=== PATIENT | male | born 1980 | race Caucasian/White ===

== ENCOUNTER → 2020-02-01 | Day surgery (SDC) | payer OTHER ==
[2020-01-28 14:05] VITALS: BMI 25.4
[~2020-02-01] MED LIST: BUPIVACAINE (PF) 0.5% 30 ML VIAL INTRAARTIC ONE; DEXAMETHASONE SOD PHOSPHATE 10 MG/ML 1 ML VIAL IV ONE; HYDROmorphone (PF) 1 MG/ML ONE; HYDROmorphone 0.5 MG/0.5 ML SYRINGE IVP PRN; KETOROLAC 15 MG/ML 1 ML VIAL ONE; LACTATED RINGERS 1,000 ML IV ONE; LACTATED RINGERS 1,000 ML IV SCH; LIDOCAINE 1% (10MG/ML) FOR IV START INTRADERMA PRN; LIDOCAINE 1% INJ 10MG/ML (20 ML MDV) ONE; MIDAZOLAM 2 MG/2 ML VIAL IV PRN; MIDAZOLAM 2 MG/2 ML VIAL ONE; ONDANSETRON 4 MG/2 ML VIAL IVP ONE; ONDANSETRON ODT 4 MG TAB PO ONE; PROPOFOL 10 MG/ML 20 ML VIAL IV ONE; Pre Op ABX Message 1 EACH MISC MISCELLANE ONE; fentaNYL (PF) 50 MCG/ML 2 ML AMP IV PRN; fentaNYL (PF) 50 MCG/ML 2 ML AMP ONE
[2020-02-01 15:23] VITALS: TEMP 97.4
--- NOTE | 2020-02-01 15:31 | P.OP ---
Date of Procedure: 02/01/20 Preoperative Diagnosis: torn medial meniscus left knee Postoperative Diagnosis: 1. torn medial meniscus left knee 2. Synovitis Procedure(s) Performed: 1. arthroscopy of the left knee with partial medial meniscectomy ( 35% of the meniscus excised) 2. Partial synovectomy of the medial femoral, lateral femoral, and patellofemoral compartments Anesthesia: RUFINAA Surgeon: Dave Duggan Estimated Blood Loss (ml): 5 Pathology: none sent Condition: stable Disposition: PACU Indications for Procedure: this is a 40-year-old gentleman that presented my office with pain in his left knee. An MRI demonstrated torn medial meniscus and after discussing the surgical and nonsurgical treatment options with her at length he wishes to proceed with arthroscopic debridement of his knee informed consent was obtained. Operative Findings: operative findings are consistent with a torn posterior horn medial meniscus of the left knee. Description of Procedure: Patient was seen and evaluated in the preoperative area, the operative site was marked with a skin marker. The patient was then brought to the operating room and given 2 g of Ancef intravenously. A general anesthetic was administered by the anesthesia department. Tourniquet was placed on the left upper thigh and the left lower extremity was then prepped and draped in usual sterile fashion. A universal timeout was then performed confirming the patient's name, surgical site, ALLERGIES, and consent. The limb was then exsanguinated and tourniquet insufflated to 250 mmHg. Standard inferior medial and inferior lateral portals were established in the knee. The trochar was inserted in the inferolateral portal. Examination began at the patellofemoral joint. There was no evidence of chondral malacia inthe patellofemoral compartment but a moderate amount of synovitis. Next the medial compartment was visualized. There was a tear of the posterior horn of the medial meniscus. There was no evidence of chondral malacia inthe mediofemoral compartmentbut there was a mild amount of synovitis. The notch area was then visualized and ACL was found to be intact. The Lateral compartment was then visualized and the lateral meniscus was found to be intact, there was no evidence of chondromalacia, but a mild amount of synovitis. Next, using an arthroscopic shaver and a biter, partial medial meniscectomy was performed stable margins. proximally 35% of the medial meniscus was excised.A partial synovectomy is performed the medial femoral, lateral femoral, patellofemoral compartments. Knee was then copiously irrigated, instruments removed, incisions were closed with 4-0 nylon. 30 mL of quarter percent plain Marcaine were injected sterilely into the surgical area. A sterile dressing was then applied, and the tourniquet was released. Patient was then transferred to recovery room in stable condition.
[2020-02-01 16:12] VITALS: RESP 20
[2020-02-01 17:03] VITALS: BP 140/67; PULSE 59
== END | disposition home or self-care (01) ==
LOC: OR 12:23
PROVIDERS: ATTEND Orthopaedic Surgery
DX: S83.242A Other tear of medial meniscus, current injury, left knee, initial encounter (principal); M65.9 Synovitis and tenosynovitis, unspecified; X50.1XXA Overexertion from prolonged static or awkward postures, initial encounter; Z72.0 Tobacco use; Z79.51 Long term (current) use of inhaled steroids; Z79.899 Other long term (current) drug therapy
CPT/HCPCS: 29881; J2250; J1100; J2405; J2001; J3010; J1170; J1885; J2704